=== PATIENT | female | born 1975 | race Caucasian/White ===

== ENCOUNTER → 2018-04-27 | Outpatient (CLI) | payer BC ==
[~2018-04-27] MED LIST: GADOBENATE DIMEGLUMINE 1 ML IV ONE; IOPAMIDOL 300 MG/ML 15ML VIAL IT ONE; LIDOCAINE HCL 2% LOCAL 20 ML VIAL ONE
--- NOTE | 2018-04-27 17:03 | Diagnostic Imaging Report ---
TECHNIQUE: Magnetic resonance imaging of the LEFT SHOULDER was performed after intra-articular injection of contrast. HISTORY: Pain, impingement syndrome COMPARISON: Spot images from the intra-articular injection of contrast from the same date. FINDINGS: MUSCLES AND TENDONS: Rotator Cuff: Tendons: Supraspinatus and Infraspinatus: Intact Teres Minor: Intact Subscapularis: Intact Muscles: No focal muscle atrophy. Biceps Tendon: The long head of the biceps tendon is intact and within the intertubercular groove. GLENOHUMERAL JOINT: Glenoid Labrum: Attenuation and subtle contour irregularity of the posterosuperior labrum, without a discrete well-defined displaced labral fragment. Articular Cartilage: No focal defect. Joint Fluid: Intra-articular contrast. ACROMIOCLAVICULAR JOINT: Mild hypertrophic degenerative changes of the acromioclavicular joint. No effusion. BONE: The acromion is unremarkable. The bone marrow signal is heterogeneous, compatible with red marrow conversion, no specific evidence of a focal bone marrow replacing abnormality. No acute fracture. Moderate focal subchondral bone marrow edema within the distal clavicle. SOFT TISSUES: Trace fluid within the subacromial/subdeltoid bursa. IMPRESSION: 1. 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 2. Mild degenerative attenuation and fraying of the posterosuperior labrum, without a discrete displaced fragment. Signed by: Dr. Donaldo Chavez D.O., M.M.M. on 04/27/2018 5:00 PM
== END ==
LOC: DX 12:54
PROVIDERS: ATTEND Orthopaedic Surgery
DX: M75.42 Impingement syndrome of left shoulder (principal); S43.422A Sprain of left rotator cuff capsule, initial encounter; S43.432A Superior glenoid labrum lesion of left shoulder, initial encounter
CPT/HCPCS: 23350; 73222; J2001; Q9967